=== PATIENT | female | born 1975 | race Caucasian/White ===

== ENCOUNTER 2023-05-13 18:38 | Emergency (ER) | payer OTHER ==
[~2023-05-13] VITALS: Ht 170.2 cm; Wt 59.0 kg
[2023-05-13 18:44] VITALS: TEMP 98; O2SAT 99
[2023-05-13 19:00] VITALS: BP 138/78; PULSE 74; RESP 18
[2023-05-13] MEDS ORDERED: KETOROLAC 30MG/ML VIAL IM ONE (19:00)
[2023-05-13] MEDS ORDERED: METHOCARBAMOL 500MG TABLET PO ONE (19:00)
[2023-05-13] MEDS ORDERED: METH-653 MT (19:44)
[2023-05-13] MEDS ORDERED: IBUP-2029 MT (19:44)
== END 2023-05-13 20:11 | disposition home or self-care (01) ==
LOC: ER 18:38
DX: S13.4XXA Sprain of ligaments of cervical spine, initial encounter (principal); V49.59XA Passenger injured in collision with other motor vehicles in traffic accident, initial encounter; Y93.89 Activity, other specified; Y92.89 Other specified places as the place of occurrence of the external cause; Y99.8 Other external cause status
CPT/HCPCS: 81025; 99283